=== PATIENT | male | born 1970 | race Caucasian/White ===

== ENCOUNTER → 2022-01-24 | Outpatient (CLI) | payer BC ==
--- NOTE | 2022-01-24 21:43 | CT ---
EXAMINATION TYPE: CT sinus wo con DATE OF EXAM: 01/24/2022 COMPARISON: NONE HISTORY: Chronic sinusitis. Hx of nasal polyps removed. CT DLP: 728.2 mGycm. Automated Exposure Control for Dose Reduction was Utilized. TECHNIQUE: CT scan of the sinuses is performed without contrast, axial images are obtained, coronal r eformatted images are also reviewed. FINDINGS: Moderate to severe mucosal thickening with central opacification nearly completely filling the right maxillary sinus. Moderate peripheral mucosal thickening in the left maxillary sinus. Near complete opacification of the ethmoid sinuses bilaterally. Completely opacified right sphenoid s inus. Nearly completely opacified left sphenoid sinus. No bony destruction at this level. Completely opacified bilateral frontal sinuses without bony destruction. The ostiomeatal complex is occluded ora aterally on the coronal images. Visualized portion of mastoid air cells show no abnormal opacification. The globes are intact bilate rally. IMPRESSION: Acute on chronic paranasal pansinusitis as detailed above.
== END | disposition home or self-care (01) ==
LOC: RADCTMAIN 16:31
PROVIDERS: ATTEND Otolaryngology
DX: J32.9 Chronic sinusitis, unspecified (principal)
CPT/HCPCS: 70486